=== PATIENT | male | born 1985 | race Caucasian/White ===

== ENCOUNTER 2016-11-26 11:24 | Emergency (ER) | payer MEDICAID, OTHER ==
[~2016-11-26] VITALS: Ht 175.3 cm; Wt 129.3 kg
[2016-11-26] MEDS ORDERED: KETOROLAC 60 MG/2 ML VIAL (J1885) IM ONE (13:45)
[2016-11-26] MEDS ORDERED: ZANA4TAB PO (14:30)
[2016-11-26] MEDS ORDERED: MOBI7.5T10 PO (14:30)
[2016-11-26] MEDS ORDERED: PRED20TA PO (14:30)
[2016-11-26 14:54] VITALS: BP 133/64
--- NOTE | 2016-11-26 15:04 | REP ---
LUMBAR SPINE, FIVE VIEWS: HISTORY: Trauma. COMPARISON: 06/14/2006 There is no acute fracture or subluxation. The L3-4 and L4-5 intervertebral discs are decreased in height consistent with disc degeneration. The facet joints are normal in appearance. IMPRESSION: Degenerative change as described above. Signed by Noel Frerell MD 11/26/2016 03:08 P
== END 2016-11-26 14:58 | disposition home or self-care (01) ==
LOC: M ED 12:52
DX: M51.36 Other intervertebral disc degeneration, lumbar region (principal); F17.210 Nicotine dependence, cigarettes, uncomplicated

== ENCOUNTER 2017-01-27 05:26 | Emergency (ER) | payer OTHER ==
[~2017-01-27] VITALS: Ht 175.3 cm; Wt 127.3 kg
[~2017-01-27 05:26] MED LIST: MOBI4TAB PO; PRED20TA PO; ZANA4TAB PO
[2017-01-27 05:33] VITALS: BP 162/84
[2017-01-27] MEDS ORDERED: KETOROLAC 30 MG/ML VIAL (J1885) As Ordered ONE (07:11)
[2017-01-27] MEDS ORDERED: METOCLOPRAMIDE INJ 10MG/2ML VIAL (J2765) IM ONE (07:15)
[2017-01-27] MEDS ORDERED: KETOROLAC 60 MG/2 ML VIAL (J1885) IM ONE (07:15)
== END 2017-01-27 08:20 | disposition home or self-care (01) ==
LOC: M ED 05:26
DX: R51 Headache (principal)
CPT/HCPCS: 96372; 99282; J1885; J2765

== ENCOUNTER → 2017-03-25 | Outpatient (CLI) | payer MEDICAID ==
[~2017-03-25] MED LIST changes: +BACT800T5 PO
== END ==
LOC: M OUTALCOH 07:51
PROVIDERS: ATTEND Psychiatry & Neurology Psychiatry
DX: F12.20 Cannabis dependence, uncomplicated (principal)

== ENCOUNTER 2017-04-02 10:00 | Outpatient (RCR) | payer MEDICAID ==
[~2017-04-02 10:00] MED LIST changes: -BACT800T5 PO
== END 2017-04-05 ==
LOC: M OUTALCOH 10:00
PROVIDERS: ATTEND Psychiatry & Neurology Psychiatry
DX: F10.10 Alcohol abuse, uncomplicated (principal); F12.20 Cannabis dependence, uncomplicated; F17.210 Nicotine dependence, cigarettes, uncomplicated

== ENCOUNTER 2017-04-08 09:08 | Emergency (ER) | payer MEDICAID, OTHER ==
[~2017-04-08] VITALS: Ht 175.3 cm; Wt 129.6 kg
[2017-04-08] MEDS ORDERED: BACT800T5 PO (10:52)
[2017-04-08 10:57] VITALS: BP 182/95
== END 2017-04-08 11:07 | disposition home or self-care (01) ==
LOC: M ED 09:08
DX: L03.213 Periorbital cellulitis (principal); Z72.0 Tobacco use

== ENCOUNTER → 2017-04-22 | Outpatient (CLI) | payer OTHER ==
[~2017-04-22] MED LIST changes: +BACT800T5 PO
--- NOTE | 2017-04-23 05:15 | REP ---
Clinical: Pain. Technique: AP, lateral, bilateral oblique views of the right and left foot. Findings: Mild to moderate bilateral hallux valgus deformity (left greater than right) noted. Remainder examination demonstrates normal age-related changes. No further arthritic degenerative changes are identified. Findings suggest acute versus old injury at the base of the fifth metatarsal bone. Impression: 1. Moderate bilateral hallux valgus deformity (left greater than right). 2. Fracture/injury at the base of the fifth metatarsal bone requires correlation with history and mechanism of injury/point of tenderness. Signed by Chato Richard MD 04/23/2017 05:02 A
== END ==
LOC: M LAB 10:37
PROVIDERS: ATTEND Internal Medicine
DX: Z68.43 Body mass index [BMI] 50.0-59.9, adult (principal); M25.572 Pain in left ankle and joints of left foot; M25.571 Pain in right ankle and joints of right foot

== ENCOUNTER 2017-06-04 08:45 | Outpatient (RCR) | payer MEDICAID | END 2017-06-05 | LOC: M OUTALCOH 08:45 | PROVIDERS: ATTEND Psychiatry & Neurology Psychiatry | DX: F12.20 Cannabis dependence, uncomplicated (principal); F10.10 Alcohol abuse, uncomplicated; F17.200 Nicotine dependence, unspecified, uncomplicated ==

== ENCOUNTER 2017-06-06 10:15 | Outpatient (RCR) | payer SELFPAY, MEDICAID | END 2017-07-06 | LOC: M OUTALCOH 06-11 08:45 | DX: F12.20 Cannabis dependence, uncomplicated (principal); F10.10 Alcohol abuse, uncomplicated; F17.200 Nicotine dependence, unspecified, uncomplicated ==

== ENCOUNTER 2017-07-09 11:04 | Outpatient (RCR) | payer MEDICAID, SELFPAY | END 2017-08-06 | LOC: M OUTALCOH 11:04 | DX: F12.20 Cannabis dependence, uncomplicated (principal); F10.10 Alcohol abuse, uncomplicated; F17.200 Nicotine dependence, unspecified, uncomplicated ==

== ENCOUNTER → 2017-11-08 | Outpatient (REF) | payer OTHER | LOC: M SFHCPLAZ 06:20 | DX: R51 Headache (principal) ==

== ENCOUNTER 2018-03-01 21:57 | Emergency (ER) | payer OTHER ==
[2018-03-01] MEDS: AUGMENTIN 875 MG TAB PO (23:38)
[2018-03-01] MEDS: NORCO, ANEXSIA 5/325MG TABLET (HYDROcodone/ACETAMINOPHEN) PO (23:39)
== END 2018-03-01 23:57 | disposition home or self-care (01) ==
LOC: M ED 21:57
DX: K02.9 Dental caries, unspecified (principal); F41.9 Anxiety disorder, unspecified; Z79.899 Other long term (current) drug therapy
CPT/HCPCS: 99283

== ENCOUNTER 2020-09-22 20:27 | Emergency (ER) | payer OTHER ==
[~2020-09-22] VITALS: Ht 175.3 cm; Wt 170.4 kg
[~2020-09-22 20:27] MED LIST changes: +AUGM875T28 PO; +HYDR-3715 PO; +NAPR500T6; +OLAN2.5T25; +TRAZ-257
[2020-09-22] MEDS ORDERED: ASPIRIN 81 MG CHEW TABLET PO ONE (21:30)
[2020-09-22] MEDS ORDERED: GI COCKTAIL 50ML BTL(HYOSCYAMINE/MAALOX/LIDOCAINE VISCOUS)(1:3:1) PO ONE (21:30)
[2020-09-22 21:36] LABS: BASO % 0.3 % (0.0-1.0); EOS # 0.2 10^3/uL (0.0-0.5); EOS % 1.2 % (0.0-3.0); HEMATOCRIT 46.5 % (42.0-52.0); HEMOGLOBIN 15.3 g/dl (13.5-17.5); LYMPH # 1.6 10^3/uL (1.5-5.0); LYMPH % 11.1 % (24.0-44.0); MEAN CORPUSCULAR HEMOGLOBIN 30.6 pg (27.0-33.0); MEAN CORPUSCULAR HGB CONC 32.9 g/dl (32.0-36.5); MONO # 1.1 10^3/uL (0.0-0.8); MONO % 7.5 % (2.0-8.0); NEUTROPHILS # 11.7 10^3/uL (1.5-8.5); NEUTROPHILS % 79.2 % (36.0-66.0); PLATELET COUNT, AUTOMATED 223 10^3/uL (150-450); WHITE BLOOD COUNT 14.7 10^3/uL (4.0-10.0)
[2020-09-22 21:40] LABS: INR 0.95; PROTHROMBIN TIME 12.8 SECONDS (12.5-14.3)
[2020-09-22 21:59] LABS: ALBUMIN 4.1 GM/DL (3.2-5.2); ALT/SGPT 53 U/L (12-78); BILIRUBIN,DIRECT 0.2 MG/DL (0.0-0.2); BILIRUBIN,TOTAL 0.5 MG/DL (0.2-1.0); BLOOD UREA NITROGEN 12 MG/DL (7-18); CALCIUM LEVEL 9.5 MG/DL (8.5-10.1); CARBON DIOXIDE LEVEL 25 MEQ/L (21-32); CHLORIDE LEVEL 105 MEQ/L (98-107); CK-MB VALUE MASS 16.7 NG/ML (<3.6); CPK CREATINE PHOSPHOKINASE 374 U/L (39-308); CREATININE FOR GFR 1.13 MG/DL (0.70-1.30); GLOMERULAR FILTRATION RATE > 60.0 (>60); GLUCOSE, FASTING 118 MG/DL (70-100); LIPASE 86 U/L (73-393); MB/CK RELATIVE INDEX 4.47 (< OR =4); POTASSIUM SERUM 3.7 MEQ/L (3.5-5.1); SODIUM LEVEL 138 MEQ/L (136-145); TOTAL PROTEIN 7.8 GM/DL (6.4-8.2); TROPONIN I 4.02 NG/ML (< 0.10)
--- NOTE | 2020-09-22 22:17 | REPVR ---
PROCEDURE INFORMATION: Exam: XR Chest Exam date and time: 09/22/2020 9:55 PM Age: 35 years old Clinical indication: Other: Chest pain TECHNIQUE: Imaging protocol: XR of the chest Views: 1 view. COMPARISON: No relevant prior studies available. FINDINGS: Lungs: No focal infiltrates. Pleural spaces: Unremarkable. No pleural effusion. No pneumothorax. Heart/Mediastinum: The heart is within normal limits considering AP and lordotic projection. Bones/joints: Unremarkable. Soft tissues: There are moderately generous overlying soft tissues. IMPRESSION: Negative lordotic chest. Electronically signed by: Arjun Marcelo On 09/22/2020 22:17:30 PM
[2020-09-22] MEDS ORDERED: CLOPIDOGREL 300 MG TAB (PLAVIX) PO STA (23:04)
[2020-09-22] MEDS ORDERED: HEPARIN DRIP 25,000 UNITS in IV 1 EA IV SCH (23:04)
[2020-09-22] MEDS ORDERED: HEPARIN SOD (PORCINE) 5000UNITS/ML 1ML VIAL/SYRINGE IV ONE (23:05)
[2020-09-22] MEDS ORDERED: MORPHINE 2 MG/ML 1ML VIAL (J2270) IV PRN (23:05)
[2020-09-22 23:18] LABS: AMPHETAMINES LEVEL URINE NEGATIVE (NEGATIVE); BARBITURATES URINE NEGATIVE (NEGATIVE); BENZODIAZEPINES URINE NEGATIVE (NEGATIVE); CANNABINOIDS URINE POSITIVE (NEGATIVE); COCAINE METABOLITE URINE NEGATIVE (NEGATIVE); METHADONE URINE NEGATIVE (NEGATIVE); OPIATES URINE NEGATIVE (NEGATIVE); PHENCYCLIDINE URINE NEGATIVE (NEGATIVE)
[2020-09-23] MEDS ORDERED: METOCLOPRAMIDE INJ 10MG/2ML VIAL (J2765 PER 1) IV ONE (00:30)
[2020-09-23 00:31] VITALS: BP 183/108
[2020-09-23 00:31] LABS: RSV AMPLIFICATION NEGATIVE (NEGATIVE)
--- NOTE | 2020-09-24 08:08 | ECGEPIP ---
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
--- NOTE | 2020-09-24 08:08 | ECGEPIP ---
[facility] - ED Test Date: 2020-09-22 Pat Name: DUKE PARNELL Department: Room: - Gender: Male Dieing Out Machine Operator: ABDULLAHI : 1985 Requested By: NOELLE CHRISTENSEN Order Number: [id number] Reading MD: Yamila Padilla Measurements Intervals [place] Rate: 87 P: 40 NM: 176 QRS: 19 QRSD: 70 T: 34 QT: 344 QTc: 413 Interpretive Statements Normal sinus rhythm Low voltage QRS Cannot rule out Anteroseptal infarct , age undetermined Electronically Signed on 09-24-2020 8:08:38 EDT by Yamila Padilla
== END 2020-09-23 00:50 | disposition short-term general hospital (02) ==
LOC: M ED 20:27
DX: I21.4 Non-ST elevation (NSTEMI) myocardial infarction (principal); I10 Essential (primary) hypertension; F17.210 Nicotine dependence, cigarettes, uncomplicated
CPT/HCPCS: 71045; 80048; 80076; 80307; 82550; 82553; 83690; 85025; 85610; 87631; 93005; 93041; 94760; 96374; 96375; 99285; J1644; J2270; J2765

== ENCOUNTER 2024-05-18 14:08 | Emergency (ER) | payer OTHER ==
[~2024-05-18] VITALS: Ht 175.3 cm; Wt 173.2 kg
[~2024-05-18 14:08] MED LIST changes: +NAPR-1405; -NAPR500T6; -OLAN2.5T25; +OLAN2.5T53
[2024-05-18 16:42] LABS: BASO % 0.3 % (0.0-1.0); EOS # 0.1 10^3/uL (0.0-0.5); EOS % 1.1 % (0.0-3.0); HEMATOCRIT 42.2 % (42.0-52.0); HEMOGLOBIN 13.9 g/dl (13.5-17.5); LYMPH # 1.4 10^3/uL (1.5-5.0); LYMPH % 11.4 % (24.0-44.0); MEAN CORPUSCULAR HEMOGLOBIN 30.2 pg (27.0-33.0); MEAN CORPUSCULAR HGB CONC 32.9 g/dl (32.0-36.5); MEAN CORPUSCULAR VOLUME 91.7 fl (80.0-96.0); MONO # 1.3 10^3/uL (0.0-0.8); MONO % 10.7 % (2.0-8.0); NEUTROPHILS # 9.6 10^3/uL (1.5-8.5); NEUTROPHILS % 75.9 % (36.0-66.0); PLATELET COUNT, AUTOMATED 245 10^3/uL (150-450); WHITE BLOOD COUNT 12.6 10^3/uL (4.0-10.0)
[2024-05-18 16:48] LABS: ERYTHROCYTE SEDIMENTATION RATE 90 mm/hr (0-15)
[2024-05-18 17:14] LABS: URIC ACID 6.9 MG/DL (3.7-9.2)
[2024-05-18 17:17] LABS: BLOOD UREA NITROGEN 10 MG/DL (9-23); CALCIUM LEVEL 8.9 MG/DL (8.5-10.1); CARBON DIOXIDE LEVEL 27 MMOL/L (20-31); CHLORIDE LEVEL 104 MMOL/L (98-107); GLOMERULAR FILTRATION RATE > 60.0 (>60); GLUCOSE, FASTING 102 MG/DL (60-100); POTASSIUM SERUM 4.4 MMOL/L (3.5-5.1); SODIUM LEVEL 136 MMOL/L (136-145)
[2024-05-18 18:53] LABS: RHEUMATOID FACTOR QUANT 6.7 IU/ML (<14)
[2024-05-18] MEDS ORDERED: PRED10TA2 PO (21:02)
[2024-05-18] MEDS ORDERED: dexAMETHasone 20MG/5ML VIAL IV ONE (21:05)
[2024-05-18] MEDS: predniSONE 20 MG TAB PO ONE (21:13)
[2024-05-18 21:18] VITALS: BP 150/73; TEMP 100; O2SAT 96
== END 2024-05-18 21:19 | disposition home or self-care (01) ==
LOC: EDBD 14:08 → M ED 14:08
DX: M06.4 Inflammatory polyarthropathy (principal); I10 Essential (primary) hypertension; E66.9 Obesity, unspecified; F90.9 Attention-deficit hyperactivity disorder, unspecified type
CPT/HCPCS: 73130; 73630; 80048; 84550; 85025; 85652; 86038; 86140; 86431; 86618; 99284; J7512

== ENCOUNTER → 2024-08-06 | Outpatient (REF) | payer OTHER ==
[~2024-08-06] MED LIST changes: +PRED10TA2 PO
[2024-08-06 18:10] LABS: ALBUMIN 3.8 G/DL (3.2-5.2); ALKALINE PHOSPHATASE 79 U/L (40-129); ALT/SGPT 26 U/L (7.0-40); AST/SGOT 15 U/L (<34); BILIRUBIN,TOTAL 0.5 MG/DL (0.3-1.2); BLOOD UREA NITROGEN 17 MG/DL (9-23); C REACTIVE PROTEIN QUANTITATIV 1.49 MG/DL (<1.0); CALCIUM LEVEL 8.8 MG/DL (8.5-10.1); CARBON DIOXIDE LEVEL 28 MMOL/L (20-31); CHLORIDE LEVEL 103 MMOL/L (98-107); CREATININE FOR GFR 0.87 MG/DL (0.70-1.30); GLOMERULAR FILTRATION RATE > 60.0 (>60); GLUCOSE, FASTING 102 MG/DL (60-100); POTASSIUM SERUM 4.7 MMOL/L (3.5-5.1); RHEUMATOID FACTOR QUANT 5.2 IU/ML (<14); SODIUM LEVEL 141 MMOL/L (136-145); TOTAL PROTEIN 7.1 G/DL (5.7-8.2)
[2024-08-06 18:36] LABS: BASO % 0.5 % (0.0-1.0); EOS # 0.4 10^3/uL (0.0-0.5); EOS % 4.3 % (0.0-3.0); HEMATOCRIT 47.6 % (42.0-52.0); HEMOGLOBIN 15.4 g/dl (13.5-17.5); LYMPH # 1.9 10^3/uL (1.5-5.0); LYMPH % 21.8 % (24.0-44.0); MEAN CORPUSCULAR HEMOGLOBIN 30.1 pg (27.0-33.0); MEAN CORPUSCULAR HGB CONC 32.4 g/dl (32.0-36.5); MEAN CORPUSCULAR VOLUME 93.2 fl (80.0-96.0); MONO # 0.9 10^3/uL (0.0-0.8); MONO % 10.1 % (2.0-8.0); NEUTROPHILS # 5.5 10^3/uL (1.5-8.5); PLATELET COUNT, AUTOMATED 218 10^3/uL (150-450); RED BLOOD COUNT 5.11 10^6/uL (4.30-6.10); WHITE BLOOD COUNT 8.8 10^3/uL (4.0-10.0)
[2024-08-06 18:45] LABS: ERYTHROCYTE SEDIMENTATION RATE 29 mm/hr (0-15)
[2024-08-09 15:33] LABS: SSA SJOGRENS A <1.0 NEG AI (<1.0 NEG); SSB SJOGRENS B <1.0 NEG AI (<1.0 NEG)
[2024-08-09 15:49] LABS: ANA SCREEN, IFA NEGATIVE (NEGATIVE)
[2024-08-09 22:07] LABS: CYCLIC CITRULLINATED PEPTIDE < 16 UNITS (<20)
== END ==
LOC: M LAB REF 16:37
PROVIDERS: ATTEND Family Medicine Addiction Medicine
DX: M25.50 Pain in unspecified joint (principal)

== ENCOUNTER → 2025-03-01 | Outpatient (REF) | payer OTHER ==
[2025-03-01 19:21] LABS: CALCIUM LEVEL 9.1 MG/DL (8.5-10.1); CARBON DIOXIDE LEVEL 25 MMOL/L (20-31); CHLORIDE LEVEL 106 MMOL/L (98-107); CHOLESTEROL LEVEL 191 MG/DL (<200); CHOLESTEROL RISK RATIO 6.20 (<5); CREATININE FOR GFR 0.89 MG/DL (0.70-1.30); GLOMERULAR FILTRATION RATE > 90.0 (>60); LDL CHOLESTEROL 119.0 MG/DL (<100); NON-HDL-C 160.2 MG/DL; POTASSIUM SERUM 4.4 MMOL/L (3.5-5.1); SODIUM LEVEL 142 MMOL/L (136-145); TRIGLYCERIDES LEVEL 206 MG/DL (<150)
== END ==
LOC: M LAB REF 17:32
PROVIDERS: ATTEND Physician Assistant
DX: R03.0 Elevated blood-pressure reading, without diagnosis of hypertension (principal); R60.0 Localized edema; I25.2 Old myocardial infarction